=== PATIENT | male | born 1995 | race Caucasian/White ===

== ENCOUNTER 2017-05-13 14:17 | Emergency (ER) | payer BC ==
[~2017-05-13] VITALS: Ht 177.8 cm; Wt 73.8 kg
[2017-05-13 14:19] VITALS: BP 140/99
[2017-05-13] MEDS ORDERED: HYDROcodone/APAP 5/325 TABLET PO ONE (15:00)
[2017-05-13] MEDS ORDERED: HYDROcodone/APAP 5/325 TABLET ONE (15:04)
== END 2017-05-13 15:47 | disposition home or self-care (01) ==
LOC: ED 15:20
DX: S63.501A Unspecified sprain of right wrist, initial encounter (principal); D16.01 Benign neoplasm of scapula and long bones of right upper limb; X50.1XXA Overexertion from prolonged static or awkward postures, initial encounter; Y93.89 Activity, other specified; Y92.89 Other specified places as the place of occurrence of the external cause; Y99.8 Other external cause status
CPT/HCPCS: 29125; 99284